=== PATIENT | male | born 1995 | race Caucasian/White ===

== ENCOUNTER 2020-07-15 11:57 | Day surgery (SDC) | payer BC, OTHER ==
[2020-07-11 10:00] LABS: HEMATOCRIT 44.4 % (37.9-51.0); HEMOGLOBIN 15.6 g/dL (13.5-17.0); MEAN CORPUSCULAR HEMOGLOBIN 30.5 pg (27.0-33.4); MEAN CORPUSCULAR HGB CONC 35.1 g/dL (32.0-36.0); MEAN CORPUSCULAR VOLUME 87 fl (80-97); PLATELET COUNT 190 10^3/uL (150-450); RED BLOOD COUNT 5.11 10^6/uL (4.35-5.55); RED CELL DISTRIBUTION WIDTH 12.4 % (11.5-14.0); WHITE BLOOD COUNT 6.8 10^3/uL (4.0-10.5)
[2020-07-11 10:18] LABS: INTERNATIONAL RATION (INR) 0.91; PROTHROMBIN TIME 12.4 SEC (11.4-15.4)
--- NOTE | 2020-07-11 16:40 | EKG REPORT ---
SEVERITY:- NORMAL ECG - SINUS RHYTHM : Confirmed by: Jasen Mcbride MD 11-Jul-2020 16:38:59
[~2020-07-15 11:57] MED LIST: CEFAZOLIN 1 GM/D5W RTU 1 GM/50 ML RTUPB IV PRN; GLYCOPYRROLATE 1 MG/5 ML VIAL ONE; LIDOCAINE 1%/EPINEPHRINE INJ 20 ML VIAL ONE; ONDANSETRON HCL INJ/PF 4 MG/2 ML SDV ONE; SODIUM BICARBONATE 4.2% INJ (2.5 MEQ/5 ML) VIAL ONE
[2020-07-15] MEDS ORDERED: FENTANYL CITRATE INJ/PF 100 MCG/2 ML AMPUL ONE (12:58)
[2020-07-15] MEDS ORDERED: MIDAZOLAM 2 MG/2 ML INJ ONE (12:58)
[2020-07-15] MEDS ORDERED: HYDROMORPHONE HCL INJ/PF 2 MG/ML AMPULE ONE (12:58)
[2020-07-15] MEDS ORDERED: PROPOFOL INJ 200 MG/20 ML VIAL IV ONE (12:58)
[2020-07-15] MEDS ORDERED: KETAMINE HCL INJ 500 MG/10 ML VIAL ONE (12:59)
[2020-07-15] MEDS ORDERED: CEFAZOLIN 1 GM/D5W RTU 1 GM/50 ML RTUPB IV ONE (13:04)
[2020-07-15] MEDS ORDERED: PROMETHAZINE HCL INJ 25 MG/1 ML VIAL IV PRN ×2 (13:52)
[2020-07-15] MEDS ORDERED: MEPERIDINE HCL/PF INJ 25 MG/1 ML DISP.SYRIN IV PRN (13:52)
[2020-07-15] MEDS ORDERED: FENTANYL CITRATE INJ/PF 100 MCG/2 ML AMPUL IV PRN ×3 (13:52)
[2020-07-15] MEDS ORDERED: DIPHENHYDRAMINE HCL 50 MG/ML VIAL IV PRN (13:52)
--- NOTE | 2020-07-15 14:52 | Operative Report ---
Operative Report DATE OF SURGERY: 07/15/20 PREOPERATIVE DIAGNOSIS: Severe dysplastic nevus of the right radial forearm POSTOPERATIVE DIAGNOSIS: Same OPERATION: Excision of severe dysplastic nevus of the right radial forearm with reconstruction using a O to S Plasty flap reconstruction. 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 SURGEON: SIMON KAT ANESTHESIA: LMAC TISSUE REMOVED OR ALTERED: Severe dysplastic nevus COMPLICATIONS: None ESTIMATED BLOOD LOSS: Minimal PROCEDURE: Patient seen and was marked prior to being brought into the operating room. Patient was brought into the operating room and placed on the operating room table in a supine position. Patient was then prepped with a Betadine scrub and Betadine solution and draped in a sterile and aseptic manner. The area was then marked. 12 O'clock was marked towards the antecubital fossa 3 O'clock was marked towards the volar forearm 6:00 was marked towards the wrist 9:00 was marked towards the dorsal forearm The area was then anesthetized with 1% lidocaine with epinephrine and bicarbonate for its anesthetic and hemostatic effects. The area was then excised and marked at 12:00. The specimen was sent for frozen section. The results came back that the deep and lateral margins were free. We had considered a primary closure but this would go against the natural relaxed skin tension lines. A primary closure would be too tight and would have increased chance of dehiscence. Because of the size of the resection again a direct primary closure was too tight. This area of resection was closer to the distal forearm where there was a paucity of skin. It was felt that the flap that we chose will allow us to bring tissue into the area and close the wound with the least risk of complications This will leave more of a scar so we decided to use a O to S flap reconstruction which would camouflage the scar better and take tension off of the closure so that would be less chances of complications. Then we went ahead and outlined the flap and anesthetized it. We then incised the flap and developed a flap maintaining the subdermal plexus. Then we undermined 360 to allow for plate like scarring and minimize trap door deformity. Throughout the case hemostasis was achieved with the bipolar. We then sutured the flap into its new position using 3-0 Vicryl for the subcutaneous and deep dermis. Skin was closed with a full stitch using 3-0 PDS with knots being tied on the outside. And 3-0 PDS suture was used for support and placed in the central area of the incision. We then applied tincture benzoin and Steri-Strips followed by a light pressure dressing. Patient was then reversed from anesthesia and taken to the [facility] for recovery. The patient tolerated well. There were no complications. Lesion size was the outlined area around the marked clear margins of the lesion was about 5 to 6 mm beyond the clear margin please see pathology for actual size. Portions of this note may be dictated using [employer] voice recognition software. Occasional variations and spelling and vocabulary could be possible and are unintentional. Additionally, there is a chance that some errors may not be caught or corrected. Please notify the author of any discrepancies noted or if any statements are unclear. Subjective: No complaints Objective: Vital signs stable afebrile No bleeding Dressing intact Assessment and plan: Doing well. Elevate the operative site. Resume medications. Take antibiotics for 1 day Follow-up Full instructions were given to the patient and family and they understand Portions of this note may be dictated using [employer] voice recognition software. Occasional variations and spelling and vocabulary could be possible and are unintentional. Additionally, there is a chance that some errors may not be caught or corrected. Please notify the offer of any discrepancies noted or if any statements are unclear.
--- NOTE | 2020-07-15 14:54 | Discharge Summary ---
"Discharge Summary (SDC) - Discharge Final Diagnosis: Severe dysplastic nevus of the right radial forearm Date of Surgery: 07/15/20 Condition: Good Treatment or Instructions: Leave the top dressing on for 2 days, then removed. Leave the steri-strip tapes on for 5 days, then removal. Then cleaning wound with peroxide and apply Neosporin/bacitracin 3 times per day. Antibiotics for 1 day, then discontinue. Elevate operative area to decrease swelling. Do not strain, or lift heavy objects. Call for excessive bleeding, increased temperature of 101, uncontrolled pain, or excessive nausea or vomiting. You may reach Dr. Stack through his office at [phone]. In the event of an emergency after hours, then contact Dr. Stack through [facility]. Return to the office for a postop check on . The time will be scheduled by the nursing staff of [facility] prior to discharge. Please give the patient a copy of their labs and EKG so they can bring this to their PMD. Thank you Portions of this note may be dictated using [email or web address] voice recognition software. Occasional variations and spelling and vocabulary could be possible and are unintentional. Additionally, there is a chance that some errors may not be caught or corrected. Please notify the offer of any discrepancies noted or if any statements are unclear. Discharge Diet: As Tolerated Discharge Activity: No Lifting/Push/Pulling Report the Following to Your Physician Immediately: Unusual Bleeding - Keep hand elevated. Monitor capillary refill in the tips of the fingers. Minimize any heavy activity. Follow-up Tuesday"
[2020-07-15] MEDS ORDERED: MEPERIDINE HCL/PF INJ 25 MG/1 ML DISP.SYRIN ONE (14:55)
[2020-07-15 18:21] VITALS: BP 131/69
== END 2020-07-15 16:35 | disposition home or self-care (01) ==
LOC: OROUT 11:57
PROVIDERS: ATTEND Plastic Surgery
DX: D23.61 Other benign neoplasm of skin of right upper limb, including shoulder (principal); L90.5 Scar conditions and fibrosis of skin; Z03.818 Encounter for observation for suspected exposure to other biological agents ruled out; Z01.810 Encounter for preprocedural cardiovascular examination; Z01.812 Encounter for preprocedural laboratory examination
CPT/HCPCS: 93005; 36415; 85027; 85610; 85730; 87635; 88305 ×2; 93010; 00400; 14020; J2250; J0690; J3490 ×4; J2175; J1170; J2405; J2704; C9803; 400; J3010